=== PATIENT | male | born 1985 | race Caucasian/White ===

== ENCOUNTER 2018-08-29 02:09 | Emergency (ER) | payer OTHER, MEDICAID ==
--- NOTE | 2018-08-29 02:45 | EDM.PDOCBH ---
ED HPI GENERAL MEDICAL PROBLEM - General Chief Complaint: Behavioral/Psych Stated Complaint: ANXIETY Time Seen by Provider: 08/29/18 02:44 - History of Present Illness INITIAL COMMENTS - FREE TEXT/NARRATIVE: 32-year-old male presents to the emergency room with anxiety. Patient has extreme anxiety as a result of his bipolar type II disorder. The patient is been taking Latuda however he has taken tonight's dose but missed the 2 prior doses and he's having some significant anxiety related to that. He is a little agitated but not suicidal. He denies any other medications no illicit drugs or alcohol. The patient is visiting here from out of town he lives in [facility] and he will be here for the next couple of days. Patient had some bladder leakage today and does not understand why he has not had problems like this in the past. - Related Data Allergies Allergy/AdvReac Type Severity Reaction Status Date / Time No Known Allergies Allergy Verified 08/29/18 02:19 Home Meds: Home Meds LORazepam [Ativan] 1 mg PO BID PRN #6 tab 08/29/18 [Rx] Lurasidone HCl [Latuda] 40 mg PO DAILY 08/29/18 [History] Past Medical History Psychiatric History: Reports: Anxiety, Bipolar, Schizophrenia Social & Family History - Tobacco Use Smoking Status *Q: Current Every Day Smoker Years of Tobacco use: 9 Packs/Tins Daily: 1 - Recreational Drug Use Recreational Drug Use: Yes Drug Use in Last 12 Months: No Recreational Drug Type: Reports: Marijuana/Hashish Recreational Drug Use Frequency: Not Used In Over 6 Months ED ROS GENERAL - Review of Systems Review Of Systems: See Below Constitutional: Reports: No Symptoms Respiratory: Reports: No Symptoms Cardiovascular: Reports: No Symptoms Endocrine: Reports: No Symptoms ED EXAM, BEHAVIORAL HEALTH - Physical Exam Exam: See Below Exam Limited By: No Limitations General Appearance: Alert, Anxious, Mild Distress Head: Atraumatic, Normocephalic Respiratory/Chest: No Respiratory Distress, Lungs Clear, Normal Breath Sounds Cardiovascular: Regular Rate, Rhythm, No Edema, No Murmur GI/Abdominal: Normal Bowel Sounds, Soft, Non-Tender Psychiatric: Alert, Restless, Agitated. No: Disoriented, Inattentive, Non- Communicative, Suicidal Plan, Suicidal Thoughts COURSE, BEHAVIORAL HEALTH COMP - Course Vital Signs: Last Vital Signs Temp 36.1 C 08/29/18 02:19 Pulse 85 08/29/18 02:19 Resp 20 08/29/18 02:19 BP 135/80 08/29/18 02:19 Pulse Ox 98 08/29/18 02:19 Orders, Labs, Meds: Laboratory Tests 08/29/18 Range/Units 03:02 Urine Color Light yellow (Yellow) Urine Appearance Clear (Clear) Urine pH 6.0 (5.0-8.0) Ur Specific [place] 1.010 (1.005-1.030) Urine Protein Negative (Negative) Urine Glucose (UA) Negative (Negative) Urine Ketones Negative (Negative) Urine Occult Blood Negative (Negative) Urine Nitrite Negative (Negative) Urine Bilirubin Negative (Negative) Urine Urobilinogen 0.2 (0.2-1.0) Ur Leukocyte Esterase Negative (Negative) Urine RBC 0-5 (0-5) /hpf Urine WBC Not seen (0-5) /hpf Ur Squamous Epith Cells 0-5 (0-5) /hpf Urine Bacteria Not seen (FEW) /hpf Urine Mucus Not seen (FEW) /hpf Medications Discontinued Medications Generic Name Dose Route Start Last Admin Trade Name Freq PRN Reason Stop Dose Admin Diphenhydramine HCl 50 mg 08/29/18 03:09 08/29/18 03:11 Benadryl PO 08/29/18 03:10 50 mg ONETIME ONE Administration Lorazepam 1 mg 08/29/18 02:57 08/29/18 03:01 Ativan PO 08/29/18 02:58 1 mg ONETIME ONE Administration Re-Assessment/Re-Exam: The patient was given 50 mg of Benadryl as he seems to get some extrapyramidal side effects from the Latuda. He also was given a milligram of Ativan. At this point the patient is fairly insistent on going home we will discharge. Did check a urinalysis was is unrevealing. Departure - Departure Time of Disposition: 03:57 Disposition: Home, Self-Care 01 Clinical Impression: Anxiety - Discharge Information Prescriptions: LORazepam [Ativan] 1 mg PO BID PRN #6 tab PRN Reason: Anxiety Referrals: PCP,Not In Area [Primary Care Provider] - Forms: ED Department Discharge Additional Instructions: Return to the emergency room with any questions or problems. Follow-up with your psychiatrist as soon as you get home. use the Ativan only if needed and as directed.
[2018-08-29] MEDS ORDERED: LORazepam 1 MG Tab PO ONE (02:57)
[2018-08-29] MEDS ORDERED: diphenhydrAMINE 50 MG Cap PO ONE (03:09)
== END 2018-08-29 04:09 | disposition home or self-care (01) ==
LOC: JD.ED 02:09
DX: F20.9 Schizophrenia, unspecified (principal); F31.9 Bipolar disorder, unspecified; F17.210 Nicotine dependence, cigarettes, uncomplicated; Z79.899 Other long term (current) drug therapy
CPT/HCPCS: 81001; 99283; A9270